=== PATIENT | female | born 1975 | race Caucasian/White ===

== ENCOUNTER 2022-06-17 19:56 | Emergency (ER) | payer SELFPAY ==
[~2022-06-17] VITALS: Ht 261.6 cm; Wt 68.9 kg
[2022-06-17] MEDS ORDERED: VIBRAMYCIN100 MG PO (21:42)
== END 2022-06-17 21:56 | disposition home or self-care (01) ==
LOC: ED 19:56
DX: S20.461A Insect bite (nonvenomous) of right back wall of thorax, initial encounter (principal); F17.200 Nicotine dependence, unspecified, uncomplicated; W57.XXXA Bitten or stung by nonvenomous insect and other nonvenomous arthropods, initial encounter; Y93.89 Activity, other specified; Y92.89 Other specified places as the place of occurrence of the external cause; Y99.9 Unspecified external cause status

== ENCOUNTER 2022-08-08 23:00 | Emergency (ER) | payer SELFPAY ==
[~2022-08-08] VITALS: Ht 170.1 cm; Wt 68.9 kg
[~2022-08-08 23:00] MED LIST: VIBRAMYCIN100 MG PO
[2022-08-09] MEDS ORDERED: VIBRAMYCIN100 MG PO (00:15)
[2022-08-09 00:35] LABS: BASO # 0.1 10*3/uL (0.0-0.1); BASO % 0.7 % (0.0-1.0); EOS # 0.4 10*3/uL (0.0-0.4); EOS % 5.2 % (1.0-4.0); HEMATOCRIT 38.9 % (37.0-47.0); LYMPH # 3.6 10*3/uL (1.3-4.4); LYMPH % 44.5 % (27.0-41.0); MEAN CELL VOLUME 97.3 fl (81.0-99.0); MEAN CORPUSCULAR HGB 32.3 pg (27.0-31.0); MEAN CORPUSCULAR HGB CONC 33.2 g/dl (33.0-37.0); MEAN PLATELET VOLUME 9.7 fl (9.6-12.3); MONO # 0.6 10*3/uL (0.1-1.0); MONO % 7.9 % (3.0-9.0); NEUT # 3.4 10*3/uL (2.3-7.9); NEUT % 41.5 % (47.0-73.0); PLATELET COUNT AUTOMATED 300 10*3/uL (130-400); RED CELL DISTRI WIDTH 13.3 % (0-14.5); WHITE BLOOD COUNT 8.1 10*3/uL (4.8-10.8)
[2022-08-09 00:54] LABS: ALKALINE PHOSPHATASE 48 U/L (45-117); BUN 15 mg/dl (7-24); CHLORIDE 108 mmol/L (98-107); CREATININE 0.96 mg/dL (0.55-1.02); POTASSIUM 4.4 mmol/L (3.5-5.1); SGOT/AST 14 IU/L (3-35); SGPT/ALT 17 U/L (12-78); SODIUM 141 mmol/L (136-145); TOTAL PROTEIN 7.2 gm/dL (6.4-8.2)
== END 2022-08-09 01:32 | disposition home or self-care (01) ==
LOC: ED 23:00
PROVIDERS: Family Medicine
DX: A69.23 Arthritis due to Lyme disease (principal); M25.562 Pain in left knee; M54.2 Cervicalgia; F17.200 Nicotine dependence, unspecified, uncomplicated